=== PATIENT | female | born 1995 | race Caucasian/White ===

== ENCOUNTER 2017-08-15 20:59 | Emergency (ER) | payer OTHER ==
[2017-08-15 21:09] VITALS: TEMP 36.7; O2SAT 97
[2017-08-15 22:27] LABS: BLOOD UREA NITROGEN 9 mg/dl (7-18); BUN/CREATININE RATIO 12.1 (10-20); CALCIUM 8.5 mg/dl (8.5-10.1); CARBON DIOXIDE 25 mmol/L (21-32); CHLORIDE 104 mmol/L (98-107); GLUCOSE 83 mg/dl (70-99); SODIUM 138 mmol/L (136-145)
[2017-08-15 22:47] LABS: PREG INTERNAL NEGATIVE QC NEG CLEAR BACKGROUND; PREG INTERNAL POSITIVE QC POS CONTROL LINE
[2017-08-16 06:31] VITALS: BP 106/71
[2017-08-16 09:31] VITALS: PULSE 56; O2SAT 96
--- NOTE | 2017-08-16 23:29 | EMERGENCY ROOM VISIT NOTE ---
ED Visit Note First contact with patient: 21:38 CHIEF COMPLAINT: Altered mental status from Alcohol overdose HISTORY OF PRESENT ILLNESS: This 22 year old female patient presents to the emergency department via ambulance for evaluation of altered mental status, presumably from alcohol intoxication. The patient was with several of her friends and was evidently drinking tonight. The patient began having episodes of vomiting and unresponsiveness. The patient does not have chronic medical disease. She does not have injury or pain. There is no concern for sexual assault. She denies chance of and denies substance abuse otherwise. REVIEW OF SYSTEMS: Review of systems was somewhat limited secondary to patient' s presumed alcohol intoxication status. Review of systems was performed to the best of our ability and reperformed as the patient began to sober up. All other systems were reviewed and are negative. ALLERGIES: See EMR MEDICATIONS: See EMR PMH: No chronic medical disease SOCIAL HISTORY: Student and lives locally PHYSICAL EXAM VITALS: Vitals are noted on the nurse's note and reviewed by myself. Vital signs stable. GENERAL: White female, who is in no acute distress and resting comfortably. Patient is visibly altered and smells of alcohol. HEAD: Normocephalic atraumatic. EARS: External ear normal. External auditory canals clear, tympanic membranes pearly jones without erythema or effusion bilaterally. EYES: Pupils equal round and reactive to light and accommodation. Conjunctivae without injection, sclerae without icterus. Extraocular movements intact. NOSE: Patent, turbinates without inflammation or discharge. MOUTH: Mucous membranes moist. Tonsils are not enlarged. Pharynx without erythema, blood, vomitus, or exudate. Uvula midline. Airway patent. NECK: Supple without nuchal rigidity. No lymphadenopathy. Cervical spine is nontender. HEART: Regular rate and rhythm without murmurs gallops or rubs. LUNGS: Clear to auscultation bilaterally without wheezes, rales or rhonchi. No retractions or accessory muscle use. ABDOMEN: Positive normal bowel sounds x 4. Soft, nontender, without masses or organomegaly. No guarding or rebound tenderness. MUSCULOSKELETAL: No muscle atrophy, erythema, or edema noted. Gross motor function intact to all extremities. NEURO: Patient was alert to person but not place or time. They appear with altered mental status. SKIN: The skin was without rashes, erythema, edema, or bruising. No Tenting of the skin. EMERGENCY DEPARTMENT COURSE: Physical exam and history was performed. Nursing notes and EMR were reviewed. The patient appears to be altered on my examination. I suspect this is from an alcohol overdose. Conservative care measures and aspiration precautions were instituted. The patient was placed on monitoring tech and watched during the patient's stay. The patient was placed in a prone position. Blood work was obtained and was reviewed. The patient's blood alcohol level was 356. This appears to be the primary cause of the altered status. Patient was reevaluated multiple times throughout the course of their emergency department stay. Over time the patient did sober up and was able to talk, walk , and drink fluids without difficulty. The patient was felt stable for discharge home. The patient was given alcohol intoxication handouts. The patient was discharged home in stable condition with a sober ride. Differential diagnosis: Etiologies such as alcohol intoxication, metabolic, infection, hypoglycemia, electrolyte abnormalities, cardiac sources, intracerebral event, toxicologic, neurologic, as well as others were entertained. DIAGNOSIS: Acute alcohol intoxication Current/Historical Medications Unable to Obtain Active Prescriptions or Reported Meds Vital Signs Date Time Temp Pulse Resp B/P (MAP) Pulse Ox O2 Delivery O2 Flow Rate FiO2 08/16/17 09:31 56 18 96 Room Air 08/16/17 08:30 86 20 97 Room Air 08/16/17 06:46 82 16 97 08/16/17 06:31 75 106/71 96 08/16/17 06:16 75 99 08/16/17 06:01 76 104/65 08/16/17 05:46 88 21 97 08/16/17 05:41 124/70 08/16/17 05:36 75 18 08/16/17 05:21 99 08/16/17 05:20 111 08/16/17 05:06 86 97 08/16/17 05:01 109/63 08/16/17 04:51 79 16 96 08/16/17 04:36 80 19 96 08/16/17 04:31 100/57 08/16/17 04:21 86 19 96 08/16/17 04:06 75 97 08/16/17 04:01 100/57 08/16/17 04:00 76 15 96 08/16/17 03:45 77 17 97 08/16/17 03:31 99/58 08/16/17 03:30 78 14 96 08/16/17 03:15 86 15 95 08/16/17 03:10 92 16 98 08/16/17 03:01 110/64 08/16/17 02:55 89 96 08/16/17 02:40 76 16 96 08/16/17 02:35 77 16 96 Room Air 08/16/17 02:31 109/58 08/16/17 02:05 78 20 96 Room Air 08/16/17 02:01 106/59 08/16/17 01:35 79 18 96 Room Air 08/16/17 01:31 102/61 08/16/17 01:18 80 08/16/17 01:05 79 17 96 Room Air 08/16/17 01:00 78 17 96 Room Air 08/16/17 00:33 109/54 08/16/17 00:30 86 20 95 Room Air 08/16/17 00:02 113/59 08/16/17 00:00 88 16 97 Room Air 08/15/17 23:31 104/62 08/15/17 23:30 80 17 96 Room Air 08/15/17 23:01 95/50 08/15/17 23:00 72 18 96 Room Air 08/15/17 22:14 67 14 92/60 97 Room Air 08/15/17 21:12 69 08/15/17 21:09 36.7 72 18 109/68 97 Room Air 08/15/17 21:09 97 Room Air Laboratory Results 08/15/17 21:47 Test 08/15/17 21:47 Anion Gap 8.0 mmol/L (3-11) Estimated GFR () 144.6 Estimated GFR (Non- 124.7 BUN/Creatinine Ratio 12.1 (10-20) Calcium Level 8.5 mg/dl (8.5-10.1) Human Chorionic Gonadotropin, Qual NEG (NEG) Ethyl Alcohol mg/dL 356.6 mg/dl (0-3) Departure Information Impression Primary Impression: Alcohol intoxication Additional Impression: Low blood potassium Dispostion Home / Self-Care Condition GOOD Prescriptions Unable to Obtain Active Prescriptions or Reported Meds Forms HOME CARE DOCUMENTATION FORM, IMPORTANT VISIT INFORMATION Patient Instructions Formerly [facility], [facility]: [employer] Students and Alcohol Related Visits, ED Diet High Potassium Additional Instructions You were seen and evaluated today on an emergency basis only. This is not a substitute for, or an effort to provide, complete comprehensive medical care. It is not possible to recognize and treat all injuries or illnesses in a single emergency department visit. Keep well-hydrated. Small sips of water over a long period of time are better tolerated than large amounts at once. Tylenol 1000 mg every 6 hours as needed for pain (Maximum 3000 mg Tylenol in 24 hr period). Your potassium was low here in the department. This is likely from vomiting. We recommend that you increase dietary potassium for the next 2-3 days. Follow up with family doctor as needed. You are welcome to return to the emergency department anytime with new, worsening, or concerning symptoms. Problem Qualifiers
== END 2017-08-16 09:33 | disposition home or self-care (01) ==
LOC: C.EDA 21:01
DX: F10.120 Alcohol abuse with intoxication, uncomplicated (principal); Y90.8 Blood alcohol level of 240 mg/100 ml or more; E87.6 Hypokalemia